=== PATIENT | female | born 1985 | race Two or more races ===

== ENCOUNTER 2016-10-09 18:50 | Emergency (ER) | payer OTHER ==
[2016-10-09 19:00] VITALS: RESP 16; TEMP 99; O2SAT 97
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
[2016-10-09] MEDS ORDERED: HYDROCODONE/APAP 5/325 TAB PO ONE (19:55)
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
[2016-10-09 22:40] VITALS: BP 118/70; PULSE 72
== END 2016-10-09 22:39 | disposition home or self-care (01) ==
DX: S40.011A Contusion of right shoulder, initial encounter (principal); S10.93XA Contusion of unspecified part of neck, initial encounter; V43.52XA Car driver injured in collision with other type car in traffic accident, initial encounter; Y92.410 Unspecified street and highway as the place of occurrence of the external cause; Y93.89 Activity, other specified
CPT/HCPCS: A4565